=== PATIENT | female | born 1945 | race Caucasian/White ===

== ENCOUNTER → 2019-01-21 | Outpatient (CLI) | payer MEDICARE ==
[~2019-01-21] MED LIST: ALLOPURINOL100 MG PO; ARTHROTEC EC 51 EACH PO; CAPTOPRIL25 MG PO; HYDROCHLOROTHIA25 MG PO; MYRBETRIQ50 MG PO; SIMVASTATIN40 MG PO; SPIRONOLACTONE25 MG PO
--- NOTE | 2019-01-21 12:54 | Diagnostic Imaging Report ---
EXAM: CHEST 2 VIEWS DATE: 01/21/2019 12:09 PM INDICATION: Chest pain, right clavicle pain COMPARISON: None FINDINGS: The trachea is midline. The lungs are symmetrically expanded without evidence for large focal consolidation, pneumothorax, or significant pleural effusion. The cardiomediastinal silhouette and pulmonary vasculature are within normal limits. No acute osseous abnormality is identified. Specifically, the right clavicle appears unremarkable without evidence for displaced fracture or dislocation. The surrounding soft tissues are unremarkable. IMPRESSION: No acute cardiopulmonary process identified. No acute abnormality identified within the right clavicle on this chest radiograph. Further evaluation with dedicated clavicular films could be performed if clinically indicated. Signed by: Dr. Elvin John MD on 01/21/2019 12:50 PM
== END ==
LOC: RAD 12:04
PROVIDERS: ATTEND Internal Medicine Interventional Cardiology
DX: R07.9 Chest pain, unspecified (principal); M25.511 Pain in right shoulder
CPT/HCPCS: 71046